=== PATIENT | female | born 1990 | race African-American/Black ===

== ENCOUNTER 2019-09-08 14:13 | Emergency (ER) | payer MEDICARE, MEDICAID, SELFPAY ==
--- NOTE | ~2019-09-08 | CT_ITS ---
EXAMINATION: CT elbow RT wo con DATE: 09/08/2019 15:24 INDICATION: TECHNIQUE: Computed tomography (CT) of the right elbow was performed without intravenous contrast. Th e mA was adjusted according to patient size. Iterative reconstruction technique was employed. Exam do se: 73.79 mGy-cm total exam DLP. Elbow COMPARISON: None FINDINGS: No fracture, dislocation, periosteal reaction or bone destruction or joint effusion is evid ent. IMPRESSION: No significant abnormality Reviewed, dictated and finalized at [facility]. Reviewed, dictated and finalized at [facility]. IMPRESSION: No significant abnormality
[2019-09-08 14:29] VITALS: BP 166/103; PULSE 92; RESP 18; TEMP 37.2; O2SAT 95
--- NOTE | 2019-09-08 14:34 | ED.UPPEXIN ---
HPI - Extremity Injury (Upper) General Chief Complaint: Extremity Injury, Upper Stated Complaint: arm pain Time Seen by Provider: 09/08/19 14:34 Source: patient and RN notes reviewed Mode of arrival: ambulatory Limitations: no limitations History of Present Illness HPI narrative: Patient presents their cousin for severe, worsening, 10/10, right arm pain for the past 8 days. She states that she woke up with the pain 8 days ago and has been seen at a urgent care were she had a negative x-ray. She reports that she was seen at 2 different hospitals and another urgent care for this pain, and was told that she needed to follow up with ortho. She notes that the pain is a 10/10 at her elbow, a 7/10 at her shoulder and wrist, and a 5/10 in her neck. She also notes that movement aggravates the pain and that she has been taking Hydrocodone for the pain but denies it alleviating her pain. 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 She denies any fevers, chills, cough, diarrhea, or vomiting. The patient has a dialysis shunt in her left arm and has her dialysis treatment Thursday, , and Thursday. She notes that she did receive her full dialysis treatment today. The patient denies any drinking, smoking, or drug history. MD complaint: injury to: right and arm Onset (ago): day(s) (8) Other Extremity Injury: Right: wrist, elbow, arm and shoulder Other injuries: neck Place: home Severity: severe Severity scale (1-10): 10 Relieving factors: none Exacerbating factors: movement of extremity Context: other (Woke up with pain) Associated symptoms: weakness (to the door builder of her right hand due to the pain) Treatments prior to arrival: other (Hydrocodone) Related Data Allergies Allergy/AdvReac Type Severity Reaction Status Date / Time azithromycin [From Zithromax] Allergy Unknown Verified 09/08/19 14:33 metoclopramide [From Reglan] Allergy Unknown Verified 09/08/19 14:33 Review of Systems Review of Systems: All systems reviewed & are unremarkable except as noted in HPI and below Constitutional: Constitutional: Denies chills and Denies fever(s) Respiratory: Respiratory: Denies cough Gastrointestinal: Gastrointestinal: Denies nausea and Denies vomiting Musculoskeletal: Musculoskeletal: Reports neck pain (radiated from arm pain) and Reports other (Severe right arm from her wrist to her shoulder ) Neurologic: Reports weakness (right hands door builder due to pain) [facility] Past Medical History Medical History (Updated 09/08/19 @ 16:01 by Dayan Overton MD) Dialysis patient End stage renal disease H/O: HTN (hypertension) Kyrle's disease Surgical History Surgical History (Updated 09/08/19 @ 14:53 by Michael Ma) Previous section S/P arteriovenous (AV) graft placement Social History Social History (Updated 09/08/19 @ 14:53 by Michael Ma) Smoking status: Never smoker Alcohol intake: never Substance use: never Gender identity (if verbalized by the patient): Female Exam Const: General: no acute distress, alert and other (soft voice) Orientation/consciousness: patient oriented x3 HENMT: Head: normal to inspection Eyes: Conjunctivae: conjunctivae normal Pupils: Equal, round and reactive pupils present EOM: EOMs intact bilaterally Chest: Chest palpation & inspection: normal inspection of the chest Resp: Effort & Inspection: normal respiratory effort Cardio: Rate: regular rate Peripheral pulses: Peripheral pulses 2+ throughout GI: GI Palp: Yes Soft to palpation and No Tenderness to palpation present (GI) Skin: General skin exam: normal color Wounds: wounds noted (hyper pigment papular sores scattered on trunk, arms, and legs from Kyrle's) Neuro: General: patient oriented x3 Extrem: Right upper extremity: no edema Left upper extremity: shoulder/upper arm (AV graft); no edema Right lower extremity: no edema Left lower extremity: no edema Other
[2019-09-08 15:32] LABS: Basophils Absolute Auto 0.1 K/mm3 (0.0-0.1); Basophils Percent Auto 0.9 % (0.2-1.2); Eosinophils Absolute Auto 0.3 K/mm3 (0-0.3); Eosinophils Percent Auto 3.9 % (0-4.4); Hematocrit 36.2 % (37.0-47.0); Hemoglobin 11.6 g/dL (12.0-15.0); Immature Granulocyte Absolute 0.02 K/mm3 (0.00-0.031); Immature Granulocyte Percent A 0.2 % (0-0.5); Lymphocytes Absolute Auto 0.75 K/mm3 (0.9-3.2); Lymphocytes Percent Auto 9.2 % (18.3-44.2); Mean Corpuscular Hemoglobin 31.1 pg (26-34); Mean Corpuscular Volume 97.1 fl (80-100); Mean Platelet Volume 10.7 fl (7.4-10.4); Monocytes Absolute Auto 0.6 K/mm3 (0.1-0.6); Monocytes Percent Auto 7.6 % (2.6-8.5); Neutrophils Absolute Auto 6.4 K/mm3 (1.3-6.7); Neutrophils Percent Auto 78.2 % (45.5-73.1); Platelet Count Result 160 k/mm3 (150-375); Red Blood Count 3.73 M/mm3 (4.2-5.4); Red Cell Distribution Width 14.9 % (11.5-14.5); White Blood Count 8.2 K/mm3 (4.5-10.0)
[2019-09-08 15:50] LABS: CRP 1.3 mg/dL (<1.0)
[2019-09-08 15:56] LABS: Erythrocyte Sedimentation Rate 36 mm/hr (0-20)
[2019-09-08 15:58] LABS: Alanine Aminotransferase 37 U/L (4-35); Albumin Level 3.9 g/dL (3.5-5.1); Alkaline Phosphatase 870 U/L (38-126); Aspartate Amino Transferase 55 U/L (14-36); Bilirubin,Total 1.3 mg/dL (0.2-1.3); Blood Urea Nitrogen 21 mg/dL (7-17); Carbon Dioxide 24 mmol/L (22-30); Chloride 102 mmol/L (98-107); Estimated CRCL calculation 17 ml/min; Estimated Glomerular Filt Rate 18; Glucose 319 mg/dL (65-105); Potassium 4.3 mmol/L (3.4-5.0); Sodium 135 mmol/L (137-145)
[2019-09-08] MEDS: predniSONE 20 MG TABLET 60 MG PO (16:08)
== END 2019-09-08 16:50 | disposition home or self-care (01) ==
PROVIDERS: Emergency Provider Emergency Medicine
DX: I12.0 Hypertensive chronic kidney disease with stage 5 chronic kidney disease or end stage renal disease (principal); N18.6 End stage renal disease; Z99.2 Dependence on renal dialysis; R73.9 Hyperglycemia, unspecified; M77.9 Enthesopathy, unspecified; L87.0 Keratosis follicularis et parafollicularis in cutem penetrans
CPT/HCPCS: 36415; 73200; 80053; 85025; 85652; 86140; 99284; A4565; A9270; J7512